=== PATIENT | female | born 1995 | race Caucasian/White ===

== ENCOUNTER → 2021-01-01 | Outpatient (CLI) | payer OTHER, BC, SELFPAY ==
--- NOTE | ~2021-01-01 | US_ITS ---
EXAMINATION: US OB <= 14 weeks fetus DATE: 01/01/2021 10:46 INDICATION: of uncertain dates TECHNIQUE: Real-time pelvic transabdominal and transvaginal ultrasound was performed. COMPARISON: None. FINDINGS: The uterus measures 11.1 x 8.7 cm. There is an intrauterine gestational sac. A yolk sac is identified. heart motion is identified measuring 169 beats per minute (bpm) by M-mode Doppler. The crown rump length measures 2.1 cm , which correlates with an estimated gestational age of 8 weeks and 5 day(s) (+/-) 5 day(s). The ovaries are not visualized however no adnexal abnormality is seen. There is no free fluid in the pelvis. IMPRESSION: 1. Live intrauterine with an estimated gestational age of 8 weeks and 5 day(s) (+/-) 5 day( s) and an estimated delivery date of 08/08/2021. Reviewed, dictated and finalized at location A. IMPRESSION: 1. Live intrauterine with an estimated gestational age of 8 weeks and 5 day(s) (+/-) 5 day(s) and an estimated delivery date of 08/08/2021.
== END | disposition home or self-care (01) ==
PROVIDERS: Visit Provider Obstetrics & Gynecology
DX: Z34.91 Encounter for supervision of normal pregnancy, unspecified, first trimester (principal); Z3A.01 Less than 8 weeks gestation of pregnancy
CPT/HCPCS: 76801

== ENCOUNTER → 2023-09-19 15:32 | Outpatient (CLI) | payer OTHER, SELFPAY ==
--- NOTE | ~2023-09-19 | XR_ITS ---
EXAMINATION: XR lumbar spine 2-3V DATE: 09/19/2023 15:48 INDICATION: Low back pain TECHNIQUE: Anteroposterior and lateral views of the lumbar spine, and cone-down lateral view of the l umbosacral junction were obtained. COMPARISON: Lumbar spine MR dated 04/01/2018 and radiographs dated 03/23/2018 FINDINGS: There is new lumbar levoscoliosis measuring 17 degrees between L2 and L5 with compensatory mild thora columbar dextrocurvature measuring 12 degrees between T10 and L2. Sagittal alignment is normal. Mild disc height loss at L4-5 and L5-S1 and on the right at L2-L3 and L3-L4. Visualized portions of the kimber ng bases are clear with no pleural effusion. IMPRESSION: 1. 17 degrees lumbar levoscoliosis with mild spondylosis. Reviewed, dictated and finalized at location A. OLE COMPRESSOR
== END ==
PROVIDERS: PCP Physician Assistant; Visit Provider Physician Assistant
DX: M41.86 Other forms of scoliosis, lumbar region (principal); M43.06 Spondylolysis, lumbar region
CPT/HCPCS: 72100

== ENCOUNTER 2025-06-18 12:58 | Emergency (ER) | payer OTHER, SELFPAY ==
[2025-06-18] VITALS (15 sets, daily range): BP systolic 107–157; BP diastolic 64–93; PULSE 72–119; RESP 12–20; O2SAT 97–100
--- NOTE | ~2025-06-18 | XR_ITS ---
EXAMINATION: XR chest 2V DATE: 06/18/2025 13:29 INDICATION: Chest pain TECHNIQUE: PA and lateral views of the chest were obtained. COMPARISON: Chest radiograph dated 10/17/2008 FINDINGS: The lungs are now clear with no focal airspace opacities, pulmonary edema, pleural effusion or pneumothorax. The cardiomediastinal silhouette is normal. Mild thoracic dextrocurvature with moderate spondylosis. IMPRESSION: 1. No acute cardiopulmonary disease. Reviewed, dictated and finalized at location A. Y MACHINE OPERATOR FARMWORKER
--- OUTSIDE RECORDS SUMMARY | 2025-06-18 13:03 | XMS_ITS | Clinical Summary ---
Author Organization [facility] Address [address] [place] [address] Phone Care Team Providers Care Seed Cleaner Operator Name Role Phone Naga Adkins MD Primary Care Provider Allergies No known active allergies Medications HYDROcodone-liza taminophen (NORCO) 5-325 mg tablet Take 1-2 Tablets by mouth every 4 hours as needed for Pain, Moderate. Max Daily Amount: 12 Tablets 60 Tablet 10/02/2018 Active Immunizations Immunization Administration Dates Next Due Influenza Seasonal Unspecified Formulation IM Social History Tobacco Use Types Packs/Day Years Used Date Smoking Tobacco: Never Smokeless Tobacco: Never Alcohol Use Standard Drinks/Week Comments Yes 3 (1 standard drink = 0.6 oz pur e alcohol) Comments No Sex and Gender Information Value Date Recorded Sex Assigned at Not on file Legal Sex Female 1:54 PM UNDERWRITING DIRECTOR Gender Identity Not on file Sexual Orientation Not on file Last Filed Vital Signs Vital Sign Reading Time Taken Comments Blood Pressure 109/64 10/03/2018 7:57 AM UNDERWRITING DIRECTOR Pulse 62 10/03/2018 7:57 AM UNDERWRITING DIRECTOR Temperature 37.4 C (99.3 F) 10/03/2018 7:57 AM UNDERWRITING DIRECTOR Respiratory Rate 20 10/03/2018 7:57 AM UNDERWRITING DIRECTOR Oxygen Saturation 100% 10/03/2018 7:57 AM UNDERWRITING DIRECTOR Inhaled Oxygen Concentration - - Weight 87.5 kg (193 lb) 10/02/2018 7:44 AM UNDERWRITING DIRECTOR Height 185.4 cm (6' 1) 10/02/2018 7:44 AM UNDERWRITING DIRECTOR Body Mass Index 25.46 10/02/2018 7:44 AM UNDERWRITING DIRECTOR Plan of Treatment Health Maintenance Due Date Last Done Comments DTAP/TDAP/TD VACCINES (1 - Tdap) 2013 HEPATITIS B VACCINES (1 of 3 - 19+ 3-dose series) 06/10 HPV/Cotest (21-29) 2015 HPV VACCINES (1 - 3-dose SCDM series) 2021 CERVICAL CANCER SCREENING 2024 HPV/Cotest (30-65) 2024 PAP SMEAR 2024 INFLUENZA VACCINE (#1) 2025 06/08/2018 Medical Devices Implanted Type Area Pe Manager Device Identifier Shelf Expiration Date Model / Serial / Lot Sealant Duraseal 5ml - [id number] Implanted:Qty : 1 on 10/02/2018 by Arelis Silva MD at [facility] Biological Right: Spine Lumbar [employer] [id number] 12/06/2019 / / [id number] Hemostatic Surgiflo 8ml W/Thrombin 2994 - [id number] Implanted:Qty : 1 on 10/02/2018 by Arelis Silva MD at [facility] Hemostatic Right: Spine Lumbar [employer] 01/06/2020 [id number] / / [id number] [place] 1.6cm Disc Implanted:Qty : 1 on 10/02/2018 by Arelis Silva MD at [facility] Tissue Right: Spine Lumbar 05/15/2023 [id number] / [id number] / Description:Donor # [id number] REQ# [id number] Nexplanan-(L) Upper Arm Insurance [facility] BLUE ACCESS/TRUE BLUE PPO Advance Directives For more information, please contact: [phone] * Full Code (Latest Code Status on File) Date Activated Date Inactivated Comments 10/02/2018 12:00 PM 10/03/2018 2:32 PM * Full Code Date Activated Date Inactivated Comments 10/02/2018 7:52 AM 10/02/2018 12:00 PM Care Teams Seed Cleaner Operator Relationship Specialty Start Date End Date Naga Adkins MD [address] [place] [address] PCP - General Family Practice 09/29/18
--- OUTSIDE RECORDS SUMMARY | 2025-06-18 13:03 | XMS_ITS | Clinical Summary ---
Author Organization [address] Address [address] [place] [address] Care Team Providers Care Research Consultant Name Role Phone Unknown, Notinfile Primary Care Provider Unavail able Allergies No known active allergies Medications multivitamin tablet,chewable Take by mouth Active 12-rthx-pefquy 6-dha 30 mg iron-1mg -200 mg capsule Take by mouth daily Active acetaminophen 500 mg capsule Take 2 capsules (1,000 mg total) by mouth every 6 (six) hours as needed for pain 60 tablet 3 Active Additional Information Patient not taking.Reported on 08/30/2024 ibuprofen (ADVIL,MOTRIN) 600 mg tabletIndicatio ns:Cramps Take 1 tablet (600 mg total) by mouth every 6 (six) hours as needed for pain 60 tablet 3 Active Additional Information Patient not taking.Reported on 08/30/2024 polyethylene glycol (MIRALAX) 17 gram/dose bulk powderIndicatio ns:constipation Take 17 g by mouth daily 517 g Active Additional Information Patient not taking.Reported on 07/27/2024 Hospital, Clinic, or Other Facility Administered Medication Ordered Dose Route Frequency Start Date End Date Status etonogestreL (NEXPLANON) implant 68 mgIndications:Pregna ncy Contraception 68 mg subderm Continuous (implanted device) 08/31/2024 08/31/2027 Active Active Problems Problem Noted Date Diagnosed Date Nexplanon placed 08/30/24 12/10/2021 Overview (03/25/2021): Cardiac acvity present. FHR 143 bpm. movements visualized. Presentaon Breech. Placenta anterior, Previa-no, no placental masses. Umbilical cord Cord vessels: 3 vessel cord. Cord inser on: placental inser on: normal. Amnioc fluid Amount of AF: normal amount EFW 85% Resolved Problems Problem Noted Date Diagnosed Date Resolved Date Encounter for induction of labor 06/20/2024 07/27/2024 Overview (06/20/2024): Kofi Cantrell is a 28 y.o. female at 39w3d who is dated by 1st trimester ultrasound and is being admitted for an elective induction of labor. Admit to L&D: Labs: CBC and T&S pending. Induction of labor with miso . FWB: Continuous monitoring. Reactive NST. ID: 3rd trimester HIV (>28 wga) pending on admission. GBS positive on 05/31, will start PCN . RPR on admission: pending. History of genital HSV or HSV 1/2 seropositivity: No. Membrane Status: intact. Indications for UDS: none. Verbal consent obtained for UDS: Not indicated. MOF: Plans to breastfeed. Urine drug screen not indicated. Patient informed of results: N/A. MOC: Considering nexplanon but does not desire on unit . Pain management: Desires epidural. Post DVT prophylaxis: The patient has the following MAJOR risk factors none and the following MINOR risk factors BMI 30-39. SCDs will be ordered for VTE prophylaxis . c/b: #Elevated 1 hr GTT: S/p normal 3 hr GTT, no further workup needed #Choroid plexus cyst: Seen on anatomy scan, s/p LR NIPT care following vaginal delivery 06/20/2024 08/30/2024 Overview (06/22/2024): # ID: Afebrile. No signs/symptoms of infection. # Heme: #PPH QBL 1800 mL, 2/2 uterine atony s/p pit, methergine, TXA, rectal miso following delivery. Admit hgb 11.9 > PPD0 11.6 > PPD1 AM 10.5 > 10.7. No signs or symptoms of acute blood loss anemia , hemodynamically stable. # CV/Pulm: Vital signs stable, within normal limits. Not a candidate for remote blood pressure monitoring. # GI/: Tolerating PO. Voiding spontaneously. # Pain: Controlled with above regimen. # MOC: Considering nexplanon at PP visit, does not desire bridge . # MOF: . Urine drug screen not indicated. Patient informed of results: N/A. # Post DVT prophylaxis: The patient has the following MAJOR risk factors none and the following MINOR risk factors BMI 30-39. SCDs ordered for VTE prophylaxis. # Disposition: Follow up to be scheduled with primary OB. Desires discharge home today. Service Coverage These phones are service phones and carried 28/02 in house: R1 (first call) [phone] R1 alt (second call) [phone] R4 (Chief) [phone] GBS (group B Streptococcus c arrier), +RV culture, currently 06/06/2024 07/27/2024 Elevated 1hr GTT, 3hr WNL 4/4 03/22/2024 07/27/2024 Overview (03/30/2024): Midtrimester Labs Lab Results Component Value Date [id number] 141 (H) 03/20/2024 3hr WNL 4/ Choroid plexus cyst on anatomy ultrasound 01/28/2024 07/27/2024 Overview (03/01/2024): NIPT low risk pt BSR 12/20/2023 07/27/2024 Overview (03/01/2024): IOB Labs: Lab Results Component Value Date ABORH A Positive 12/20/2023 IDCOOMB Negative 12/20/2023 [id number] Nonreactive 12/20/2023 LABRPR Nonreactive 12/20/2023 RUBELIGG Reactive 12/20/2023 HEPBSAG Nonreactive 12/20/2023 [id number] 107 04/28/2021 Optional: [] Aneuploidy screening: Low risk [] Carrier testinnd Tri Labs: [] Anatomy ultrasound: [] CBC/1hr gtt/HIV/RPR at 24-28wks: Lab Results Component Value Date [id number] 107 04/28/2021 [id number] Nonreactive 12/20/2023 LABRPR Nonreactive 12/20/2023 [] Flu Shot (Apr-October) [] Tdap (27-36wks) 3rd Tri Labs: [] GBS No results found for: GBS Vaginal delivery 08/06/2021 09/16/2021 Overview (08/08/2021): # ID: Afebrile. No signs/symptoms of infection. #COVID-19: Negative # Heme: EBL 450 mL. No symptoms acute blood loss anemia. # CV/Pulm: Vital signs stable, within normal limits. # GI/: Tolerating PO. Voiding spontaneously. # Pain: Controlled with above regimen. # Post DVT prophylaxis: The patient has the following MAJOR risk factors none and the following MINOR risk factors BMI 30-39. SCDs ordered for VTE prophylaxis. # MOC: declines # MOF: # COVID Vaccination Status: Previously received # Disposition: Follow up task not sent. Desires discharge home today. Encounter for induction of labor 08/05/2021 09/16/2021 Overview (08/05/2021): 1. Induction of labor: Admit to L&D. Consents signed and placed in chart. Send CBC/T&S. Induction of labor with misoprostol. 2. FWB: Continuous monitoring. Reactive NST 3. ID: HIV negative. GBS negative. Membrane Status: intact. 4. Indications for UDS: none. Verbal consent obtained for UDS: Not indicated 5. MOF: Plans to breastfeed. 6. MOC: Plans to use POPs for contraception. 7. Pain management: Desires epidural when painfully maria antonia. 8. Post DVT prophylaxis: The patient has the following MAJOR risk factors none and the following MINOR risk factors BMI 30-39. SCDs will be ordered for VTE prophylaxis . 9. COVID Vaccine Status: Not assessed 10. COVID Test Status: Test sent on admission pt of BR 01/29/2021 09/16/2021 Overview (07/24/2021): IOB Labs: Lab Results Component Value Date ABORH A Positive 01/28/2021 IDCOOMB Negative 01/28/2021 [id number] Nonreactive 04/28/2021 LABRPR Nonreactive 04/28/2021 RUBELIGG Reactive 01/28/2021 HEPBSAG Nonreactive 01/28/2021 [id number] 107 04/28/2021 Optional: [] Aneuploidy screening: [] Carrier testinnd Tri Labs: [x] Anatomy ultrasound: [x] CBC/1hr gtt/HIV/RPR at 24-28wks: Lab Results Component Value Date [id number] 107 04/28/2021 [id number] Nonreactive 04/28/2021 LABRPR Nonreactive 04/28/2021 [] Flu Shot (Apr-October) [] Tdap (27-36wks) 3rd Tri Labs: [] GBS No results found for: GBS Overview (03/25/2021): Cardiac acvity present. FHR 143 bpm. movements visualized. Presentaon Breech. Placenta anterior, Previa-no, no placental masses. Umbilical cord Cord vessels: 3 vessel cord. Cord inser on: placental inser on: normal. Amnioc fluid Amount of AF: normal amount EFW 85% Immunizations Immunization Administration Dates Next Due Influenza, Trivalent, IM (MDV) 06/08/2018 Influenza, Trivalent, Preser vative Free, Intramuscular 06/01/2024 Influenza, Unspecified 06/22/2021 MMR 06/22/2024(Deferred: No longer n eeded) RSV, Bivalent, Protein Subun it Rsvpref, Diluent (Abrysvo) 05/17/2024 Tdap 04/12/2024,05/26/2021 Varicella 06/22/2024(Deferred: No longer n eeded) Surgical History Surgery Date Site/Laterality Comments MICRODISCECTOMY 08/08/2018 - 08/07/2019 Family History Medical History Relation Name Comments Hyperlipidemia Father Hypertension Father Diabetes Maternal Grandfather Stroke Paternal Grandfather Relation Name Status Comments Father Maternal Grandfather Paternal Grandfather Social History Tobacco Use Types Packs/Day Years Used Date Smoking Tobacco: Never Smokeless Tobacco: Never Tobacco Cessation:Counseling Given: Not Answered [facility] Utilities Answer Date Recorded In the past 12 months has th e electric, gas, oil, or water company threatened to shut off services in your home? No 06/21/2024 Social Connection and Isolation Panel Answer Date Recorded In a typical week, how many times do you talk on the phone with family, friends, or neighbors? More than three times a week 06/21/2024 How often do you get togethe r with friends or relatives? Three times a week 06/21/2024 How often do you attend chur ch or gnosticism services? Never 06/21/2024 Do you belong to any clubs o r organizations such as hindu groups, unions, fraternal or athletic groups, or school groups? No 06/21/2024 How often do you attend meet ings of the clubs or organizations you belong to? Never 06/21/2024 Are you , , di vorced, , never , or living with a partner? 06/21/2024 AUDIT-C Answer Date Recorded Q1: How often do you have a drink containing alc ohol? Never 06/06/2024 Average Number of Drinks Not on file 024 Frequency of Binge Drinking Not on file 05/10 Overall Financial Resource Strain (CARDIA) Answe r Date Recorded How hard is it for you to pa y for the very basics like food, housing, medical care, and heating? Not hard at all 06/21/2024 Hunger Vital Sign Answer Date Recorded Within the past 12 months, y ou worried that your food would run out before you got the money to buy more. Never true 06/21/20 24 Within the past 12 months, t he food you bought just didn't last and you didn't have money to get more. Never true 06/21/2024 PRAPARE - Transportation Answer Date Re corded In the past 12 months, has l ack of transportation kept you from medical appointments or from getting medications? No 06/08 In the past 12 months, has l ack of transportation kept you from meetings, work, or from getting things needed for daily living? No 06/21/2024 Lindsay Depression Scale Answer Date Recorded Lindsay Depression Scale Total 5 07/27/2024 The thought of harming myself has occurred to me . Never 07/27/2024 Housing Stability Vital Sign Answer Leno e Recorded In the last 12 months, was t here a time when you were not able to pay the mortgage or rent on time? No 06/21/2024 In the past 12 months, how m any times have you moved where you were living? 0 06/21/2024 At any time in the past 12 m ont, were you homeless or living in a fpc (including now)? No 06/21/2024 Personal Safety Answer Date Recorded Have you ever been in or are you currently in a harmful physical or emotional relationship or is someone making you feel afraid or unsafe? Denies 06/20/2024 Comments No Sex and Gender Information Value Date Recorded Sex Assigned at Not on file Legal Sex Female 9:58 PM CERTIFIED ALCOHOL DRUG COUNSELOR Gender Identity Female 03/24/2021 9:00 AM CDT Sexual Orientation Not on file Occupation Industry Job Start Date Job End Date RN Not on file Not on file Not on file Obstetrics History Para Term AB IAB SAB Ectopic Multiple Livin g Live Births 2 2 2 0 2 2 Date Outcome GA Total Labor Labor/2nd/3rd Weight Sex Type Anes PTL Tiffanie A1 A5 Name Clin 2020 Term 39w 5d 5h 07m 3h 39m/1h 13m/0h 15m 4.06 kg (8 lb 15.2 oz) M Vag-Sp ont Epidur al N Livin g 6 7 KINDRA CANTRELL Bridg et Schev e, MD Complications:None Delivery Location:[facility]) 2023 Term 39w 3d 12h 19m 12h 07m/0h 09m/0h 03m 4.04 kg (8 lb 14.5 oz) M Vagina l Epidur al N Livin g 8 9 Felisha Pop am, MD Complications:None Delivery Location:[facility] ([facility]) Comments 07/28 Michael Anders 07/01 Enmanuel Rodrigues Last Filed Vital Signs Vital Sign Reading Time Taken Comments Blood Pressure 120/80 08/30/2024 1:26 PM CERTIFIED ALCOHOL DRUG COUNSELOR Pulse 66 06/22/2024 12:25 AM CERTIFIED ALCOHOL DRUG COUNSELOR Temperature 36.5 C (97.7 F) 06/22/2024 12:25 AM CERTIFIED ALCOHOL DRUG COUNSELOR Respiratory Rate 16 06/22/2024 12:25 AM CERTIFIED ALCOHOL DRUG COUNSELOR Oxygen Saturation 99% 06/22/2024 12:25 AM CERTIFIED ALCOHOL DRUG COUNSELOR Inhaled Oxygen Concentration - - Weight 100.2 kg (221 lb) 08/30/2024 1:26 PM CERTIFIED ALCOHOL DRUG COUNSELOR Height 188 cm (6' 2) 08/30/2024 1:26 PM CERTIFIED ALCOHOL DRUG COUNSELOR Body Mass Index 28.37 08/30/2024 1:26 PM CERTIFIED ALCOHOL DRUG COUNSELOR Plan of Treatment Health Maintenance Due Date Last Done Comments Varicella Vaccines (1 of 2 - 13+ 2-dose series) 2007 Hepatitis B Screening 2012 HPV Vaccines (1 - 3-dose SCD M series) 2021 Cervical Cancer Screening 06/27/20242022, 01/28/2021 Regular Well Visit/Exam 18-64 06/27/2024 06/27/2023 Covid-19 Vaccine (3 - 2024-2 6 season) 2025 06/03/2022, 05/13/2022 Influenza Vaccine (#1) 2025 , 06/22/2021, 06/08/2018 Depression Screening 07/27/2025 07/27/2024 DTaP/Tdap/Td Vaccine (3 - Td or Tdap) 04/12/2034 04/12/2024, 05/26/2021 Hepatitis C Screening Completed 12/20/2023 Pneumococcal vaccine <65 Aged Out No longer eligible based on patient's age to complete this topic Procedures Procedure Name Priority Date/Time Associated Diagnosis Comments HEPATITIS C ANTIBODY Routine 12/20/2023 11:24 AM CDT care, antepartum PAP WITH REFLEX TO HIGH RISK HPV Routine 06/27/2023 11:51 AM CERTIFIED ALCOHOL DRUG COUNSELOR Well woman exam Cervical cancer screening from Last 3 Months or Most Recently Relevant to Health Maintenance Results * Hepatitis C antibody Blood (12/20/2023 11:24 AM CDT) Hep C Ab Nonreactive Nonreactive Comment:Antibodies to HCV no t detected. Does NOT exclude the possibility of recent exposure to HCV. Current interpretive data was last revised on 22 Blood 12/20/2023 11:2 4 AM CDT 12/20/2023 4:27 PM CDT us Meseret Fletcher MD LAB MICROBIOLOGY - NERAL ORDERABLES Final Result [facility] Department of Laboratories [place], [place] [id number] * Pap with reflex to High Risk HPV and Genotyping (Cytology Component) (06/27/2023 11:51 AM CERTIFIED ALCOHOL DRUG COUNSELOR) Thin prep (Pap test) 06/27/2023 11:51 AM CERTIFIED ALCOHOL DRUG COUNSELOR 06/27/2023 11:51 AM CERTIFIED ALCOHOL DRUG COUNSELOR Narrative PATHOLOGY - 06/29/2023 12:43 PM CERTIFIED ALCOHOL DRUG COUNSELOR [facility] Department of Pathology [address] [place] [id number] Final Report Note to Patients: This report may contain a detailed description of human tissue sent by a health care provider to the laboratory for pathologic evaluation. The content of this report is essential for diagnosis and may provide important critical findings. This information may be unfamiliar to patients to review without a medical professional present. It is advised that the patient review this report in the presence of a health care provider who can answer questions and explain the details. Patient Name: KOFI CANTRELL Address: [address] [place] [address] Gender: F : 1995 (Age: 27) Service: Location: [facility] : [id number] [facility] #: [id number] Patient Type: SPECIMEN Taken: 06/27/2023 Received: 06/27/2023 Accessioned:: 06/28/2023 Reported: 06/29/2023 Physician(s): LIZZETH Pacheco WHNP Diagnosis: SOURCE OF SPECIMEN Imaged Thinprep Pap Test w/ Reflex HPV - Staff Training And Development Manager Cytologic Material: STATEMENT OF ADEQUACY - Satisfactory for evaluation; endocervical/transformation zone component present GENERAL CATEGORIZATION: - Negative for intraepithelial lesion or malignancy CARLOS Jarvis(ASCP) Report Electronically Reviewed and Signed Out By CARLOS Jarvis(ASCP) 06/29/2023 12:43:10Specimen(s) Received: A: Imaged Thinprep Pap Test w/ Reflex HPV - Staff Training And Development Manager Cytologic Material Clinical History: Last Menstrual Period: 06/13/2023 Menstrual History: Previous Negative Pap: 2020 The Pap test is a screening test used to aid in the detection of cervical cancer and its precursors. It should not be the sole means by which malignant and premalignant lesions are diagnosed. Both false negative and false positive results may occur. It also has poor sensitivity for the detection of endometrial lesions and should not be used to evaluate suspected endometrial abnormalities. For these reasons it is most important to obtain Pap tests at regular intervals. The performance characteristics of some immunohistochemical stains, fluorescence in-situ hybridization tests and immunophenotyping by flow cytometry cited in this report (if any) were determined by the Surgical Pathology Department at [facility] as part of an ongoing chief quality officer program and in compliance with federally mandated regulations drawn from the Clinical Laboratory Improvement Act of 1988 (CLIA '88). Some of these tests rely on the use of analyte specific reagents and are subject to specific labeling requirements by the US Food and Drug Administration. Such diagnostic tests may only be performed in a facility that is certified by the Department of Health and Human Services as a high complexity laboratory under CLIA '88. The FDA has determined that such clearance or approval is not necessary. This test is used for clinical purposes. It should not be regarded as investigational or for research. Nevertheless, federal rules concerning the medical use of analyte specific reagents require that the following disclaimer be attached to the report: This test was developed and its performance characteristics determined by the Surgical Pathology Department [facility]. It has not been cleared or approved by the U. S. Food and Drug Administration. Danette Taylor EMAIL ADMINISTRATOR LAB CYTOLOGY ORDERABLE S Final Result PATHOLOGY [address] [place] [address] from Last 3 Months or Most Recently Relevant to Health Maintenance Insurance [employer] Address: [facility] [id number] [place] [address] [employer] Address: [facility] [id number] [place] [address] [employer] Address: [facility] [id number] [place] [address] Advance Directives For more information, please contact: [phone] * Full Code (Latest Code Status on File) Date Activated Date Inactivated Comments 06/20/2024 10:54 PM 06/22/2024 4:14 PM * Full Code Date Activated Date Inactivated Comments 06/20/2024 6:28 AM 06/20/2024 10:54 PM Full CPR in case of cardiopulmonary arrest * Full Code Date Activated Date Inactivated Comments 08/06/2021 1:26 AM 08/08/2021 7:27 PM * Full Code Date Activated Date Inactivated Comments 08/05/2021 6:47 AM 08/06/2021 1:26 AM Full CPR i n case of cardiopulmonary arrest Care Teams Research Consultant Relationship Specialty Start Date End Date Unknown, Notinfile PCP - General 02/20/20
--- NOTE | 2025-06-18 13:04 | ECG_ITS ---
Test Date: 2025-06-18 13:16:54 Measurements Intervals [place] Rate: 88 P: 72 NM: 159 QRS: 94 QRSD: 114 T: 41 QT: 342 QTc: 416 Interpretive Statements SINUS RHYTHM POSSIBLE RIGHT ATRIAL ENLARGEMENT [0.25mV P-WAVE] BORDERLINE RIGHT AXIS DEVIATION [QRS AXIS > 90] No previous ECG available for comparison Electronically Signed On 06-18-2025 17:59:21 VERIFICATION LEAD by Nick Campos M.D.
[2025-06-18] MEDS: ASPIRIN 81 MG CHEWABLE TABLET 324 MG PO (13:23)
[2025-06-18 13:27] LABS: Hematocrit 39.5 % (37.0-47.0); Hemoglobin 13.2 g/dL (12.0-15.0); Immature Granulocyte Percent A 0.2 % (0-0.5); Lymphocytes Absolute Auto 2.32 K/mm3 (0.9-3.2); Mean Corpuscular HGB Conc 33.4 g/dl (32-36); Mean Corpuscular Hemoglobin 30.1 pg (26-34); Mean Corpuscular Volume 90.2 fl (80-100); Nucleated Red Blood Cells Absolute Auto 0.000 K/mm3 (0.0-0.012); Nucleated Red Blood Cells Perc 0.0 % (0.0-0.2); Platelet Count Result 245 k/mm3 (150-375); Red Blood Count 4.38 M/mm3 (4.2-5.4); White Blood Count 5.9 K/mm3 (4.5-10.0)
[2025-06-18 13:41] LABS: INR 1.0; Prothrombin Time 13.6 Seconds (11.1-14.7)
[2025-06-18 13:42] LABS: Partial Thromboplastin Time 29.8 Seconds (22.3-36.8)
[2025-06-18 13:43] LABS: Alanine Aminotransferase 14 U/L (6-35); Albumin Level 4.7 g/dL (3.5-5.1); Alkaline Phosphatase 54 U/L (38-126); Anion Gap 10 mmol/L (4-12); Aspartate Amino Transferase 22 U/L (14-36); Bilirubin,Total 1.6 mg/dL (0.2-1.3); Blood Urea Nitrogen 12 mg/dL (7-17); Calcium 9.2 mg/dL (8.4-10.2); Carbon Dioxide 26 mmol/L (22-30); Chloride 102 mmol/L (98-107); Estimated CRCL calculation 107 ml/min; Estimated Glomerular Filt Rate > 60; Glucose 101 mg/dL (65-110); Lipase 104 U/L (23-300); Potassium 3.5 mmol/L (3.4-5.0); Sodium 138 mmol/L (137-145); Total Protein 8.4 g/dL (6.3-8.2)
[2025-06-18 13:53] LABS: Troponin I < 0.012 ng/mL (0.000-0.034)
--- OUTSIDE RECORDS SUMMARY | 2025-06-18 14:08 | XMS_ITS | Clinical Summary ---
Author Organization [address] Address [address] [place] [address] Care Team Providers Care Fiction And Nonfiction Writer Prose Name Role Phone Unknown, Notinfile Primary Care Provider Unavail able Allergies No known active allergies Medications multivitamin tablet,chewable Take by mouth Active 97-ivqr-pffvtl 6-dha 30 mg iron-1mg -200 mg capsule [...] carried 28/02 in house: R1 (first call) [phone] R1 alt (second call) [phone] R4 (Chief) [phone] GBS (group B Streptococcus c arrier), +RV culture, currently 06/06/2024 07/27/2024 Elevated 1hr GTT, 3hr WNL 4/4 03/22/2024 07/27/2024 Overview (03/30/2024): Midtrimester Labs Lab Results Component Value Date [id number] 141 (H) 03/20/2024 3hr WNL 4/ Choroid plexus cyst on anatomy ultrasound 01/28/2024 07/27/2024 Overview (03/01/2024): NIPT low risk pt BSR 12/20/2023 07/27/2024 Overview (03/01/2024): IOB Labs: Lab Results Component Value Date ABORH A Positive 12/20/2023 IDCOOMB Negative 12/20/2023 [id number] Nonreactive 12/20/2023 LABRPR Nonreactive 12/20/2023 RUBELIGG Reactive 12/20/2023 HEPBSAG Nonreactive 12/20/2023 [id number] 107 04/28/2021 Optional: [] Aneuploidy screening: Low risk [] Carrier testinnd Tri Labs: [] Anatomy ultrasound: [] CBC/1hr gtt/HIV/RPR at 24-28wks: Lab Results Component Value Date [id number] 107 04/28/2021 [id number] Nonreactive 12/20/2023 LABRPR Nonreactive 12/20/2023 [] Flu [...] ABORH A Positive 01/28/2021 IDCOOMB Negative 01/28/2021 [id number] Nonreactive 04/28/2021 LABRPR Nonreactive 04/28/2021 RUBELIGG Reactive 01/28/2021 HEPBSAG Nonreactive 01/28/2021 [id number] 107 04/28/2021 Optional: [] Aneuploidy screening: [] Carrier testinnd Tri Labs: [x] Anatomy ultrasound: [x] CBC/1hr gtt/HIV/RPR at 24-28wks: Lab Results Component Value Date [id number] 107 04/28/2021 [id number] Nonreactive 04/28/2021 LABRPR Nonreactive 04/28/2021 [] Flu [...] Tobacco: Never Tobacco Cessation:Counseling Given: Not Answered [facility] Utilities Answer Date Recorded In the past [...] often do you attend chur ch or pentecostalism services? Never 06/21/2024 Do you belong to any clubs o r organizations such as faith groups, unions, fraternal or athletic groups, or [...] things needed for daily living? No 06/21/2024 Mcnabb Depression Scale Answer Date Recorded Mcnabb Depression Scale Total 5 07/27/2024 The thought [...] were you homeless or living in a jail (including now)? No 06/21/2024 Personal Safety Answer Date Recorded Have you ever been in or are you currently in a harmful physical or emotional relationship or is someone making you feel afraid or unsafe? Denies 06/20/2024 Comments No Sex and Gender Information Value Date Recorded Sex Assigned at Not on file Legal Sex Female 9:58 PM FACTORY MACHINE COMPUTER OPERATOR Gender Identity Female 03/24/2021 9:00 AM CDT [...] Bridg et Schev e, MD Complications:None Delivery Location:[facility] Main C ampus ([facility] 58LD) 2023 Term 39w 3d 12h 19m 12h 07m/0h 09m/0h 03m 4.04 kg (8 lb 14.5 oz) M Vagina l Epidur al N Livin g 8 9 Felisha Pop am, MD Complications:None Delivery Location:[facility] Main C ampus ([facility] 58LD) Comments 07/28 Michael Anders 07/01 Enmanuel Rodrigues Last Filed Vital Signs Vital Sign Reading Time Taken Comments Blood Pressure 120/80 08/30/2024 1:26 PM FACTORY MACHINE COMPUTER OPERATOR Pulse 66 06/22/2024 12:25 AM FACTORY MACHINE COMPUTER OPERATOR Temperature 36.5 C (97.7 F) 06/22/2024 12:25 AM FACTORY MACHINE COMPUTER OPERATOR Respiratory Rate 16 06/22/2024 12:25 AM FACTORY MACHINE COMPUTER OPERATOR Oxygen Saturation 99% 06/22/2024 12:25 AM FACTORY MACHINE COMPUTER OPERATOR Inhaled Oxygen Concentration - - Weight 100.2 kg (221 lb) 08/30/2024 1:26 PM FACTORY MACHINE COMPUTER OPERATOR Height 188 cm (6' 2) 08/30/2024 1:26 PM FACTORY MACHINE COMPUTER OPERATOR Body Mass Index 28.37 08/30/2024 1:26 PM FACTORY MACHINE COMPUTER OPERATOR Plan of Treatment Health Maintenance Due Date [...] HIGH RISK HPV Routine 06/27/2023 11:51 AM FACTORY MACHINE COMPUTER OPERATOR Well woman exam Cervical cancer screening from [...] MICROBIOLOGY - NERAL ORDERABLES Final Result [facility] Department of Laboratories [place], [place] [id number] * Pap with reflex to High Risk HPV and Genotyping (Cytology Component) (06/27/2023 11:51 AM FACTORY MACHINE COMPUTER OPERATOR) Thin prep (Pap test) 06/27/2023 11:51 AM FACTORY MACHINE COMPUTER OPERATOR 06/27/2023 11:51 AM FACTORY MACHINE COMPUTER OPERATOR Narrative PATHOLOGY - 06/29/2023 12:43 PM FACTORY MACHINE COMPUTER OPERATOR [facility] Department of Pathology [address] [place] [id number] Final Report Note to Patients: This [...] the details. Patient Name: KOFI CANTRELL Address: [address] [place] [address] Gender: F : 1995 (Age: 27) Service: Location: [facility] : [id number] [facility] #: [id number] Patient Type: SPECIMEN Taken: 06/27/2023 Received: 06/27/2023 Accessioned:: 06/28/2023 Reported: 06/29/2023 Physician(s): LIZZETH Pacheco WHNP Diagnosis: SOURCE OF SPECIMEN Imaged Thinprep Pap Test w/ Reflex HPV - [employer] Driver Cytologic Material: STATEMENT OF ADEQUACY - Satisfactory for evaluation; endocervical/transformation zone component present GENERAL CATEGORIZATION: - Negative for intraepithelial lesion or malignancy CARLOS Jarvis(ASCP) Report Electronically Reviewed and Signed Out By CARLOS Jarvis(ASCP) 06/29/2023 12:43:10Specimen(s) Received: A: Imaged Thinprep Pap Test w/ Reflex HPV - [employer] Driver Cytologic Material Clinical History: Last Menstrual Period: [...] determined by the Surgical Pathology Department at [facility] as part of an ongoing manufacturing quality technician program and in compliance with federally mandated [...] characteristics determined by the Surgical Pathology Department [facility]. It has not been cleared or approved by the U. S. Food and Drug Administration. Danette Taylor SKIP OPERATOR LAB CYTOLOGY ORDERABLE S Final Result PATHOLOGY [address] [place] [address] from Last 3 Months or Most Recently Relevant to Health Maintenance Insurance [employer] Address: [facility] [address] [place] [address] [employer] Address: [facility] [address] [place] [address] [employer] Address: [facility] [address] [place] [address] Advance Directives For more information, please contact: [phone] * Full Code (Latest Code Status on [...] n case of cardiopulmonary arrest Care Teams Fiction And Nonfiction Writer Prose Relationship Specialty Start Date End Date Unknown, Notinfile PCP - General 02/20/20
--- OUTSIDE RECORDS SUMMARY | 2025-06-18 14:09 | XMS_ITS | Clinical Summary ---
Author Organization [facility] Address [address] [place] [address] Phone Care Team Providers Care Fiberglass Roller Name Role Phone Naga Adkins MD Primary Care Provider [phone] Allergies No known active allergies Medications HYDROcodone-liza [...] on file Legal Sex Female 1:54 PM TRIAL MGR Gender Identity Not on file Sexual Orientation Not on file Last Filed Vital Signs Vital Sign Reading Time Taken Comments Blood Pressure 109/64 10/03/2018 7:57 AM TRIAL MGR Pulse 62 10/03/2018 7:57 AM TRIAL MGR Temperature 37.4 C (99.3 F) 10/03/2018 7:57 AM TRIAL MGR Respiratory Rate 20 10/03/2018 7:57 AM TRIAL MGR Oxygen Saturation 100% 10/03/2018 7:57 AM TRIAL MGR Inhaled Oxygen Concentration - - Weight 87.5 kg (193 lb) 10/02/2018 7:44 AM TRIAL MGR Height 185.4 cm (6' 1) 10/02/2018 7:44 AM TRIAL MGR Body Mass Index 25.46 10/02/2018 7:44 AM TRIAL MGR Plan of Treatment Health Maintenance Due Date Last Done Comments DTAP/TDAP/TD VACCINES (1 - Tdap) 2013 HEPATITIS B VACCINES (1 of 3 - 19+ 3-dose series) 06/10 HPV/Cotest (21-29) 2015 HPV VACCINES (1 - 3-dose SCDM series) 2021 CERVICAL CANCER SCREENING 2024 HPV/Cotest (30-65) 2024 PAP SMEAR 2024 INFLUENZA VACCINE (#1) 2025 06/08/2018 Medical Devices Implanted Type Area Maintenance And Engineering Manager Device Identifier Shelf Expiration Date Model / Serial / Lot Sealant Duraseal 5ml - [id number] Implanted:Qty : 1 on 10/02/2018 by Arelis Silva MD at [facility] Biological Right: Spine Lumbar [employer] [id number] 12/06/2019 / / [id number] Hemostatic Surgiflo 8ml W/Thrombin 2994 - [id number] Implanted:Qty : 1 on 10/02/2018 by Arelis Silva MD at [facility] Hemostatic Right: Spine Lumbar [employer] 01/06/2020 2994 / / [id number] Nushield 1.6cm Disc Implanted:Qty : 1 on 10/02/2018 by Arelis Silva MD at [facility] Tissue Right: Spine Lumbar 05/15/2023 [id number] / [id number] / Description:Donor # [id number] REQ# [id number] Nexplanan-(L) Upper Arm Insurance [facility] BLUE ACCESS/TRUE BLUE PPO Advance Directives For more information, please contact: [phone] * Full Code (Latest Code Status on File) Date Activated Date Inactivated Comments 10/02/2018 12:00 PM 10/03/2018 2:32 PM * Full Code Date Activated Date Inactivated Comments 10/02/2018 7:52 AM 10/02/2018 12:00 PM Care Teams Fiberglass Roller Relationship Specialty Start Date End Date Naga Adkins MD [address] [place] [address] PCP - General Family Practice 09/29/18
--- NOTE | 2025-06-18 15:56 | ECG_ITS ---
Test Date: 2025-06-18 16:03:53 Measurements Intervals [place] Rate: 71 P: 68 CO: 155 QRS: 88 QRSD: 111 T: 40 QT: 384 QTc: 419 Interpretive Statements SINUS RHYTHM Electronically Signed On 06-18-2025 18:07:27 MEDICAL DOCTOR MD by Nick Campos M.D.
--- NOTE | 2025-06-18 16:25 | ED_ITS ---
HPI - Chest Pain General Chief Complaint: Chest Pain Stated Complaint: CP x 1.5 weeks Time Seen by Provider: 06/18/25 13:55 History of Present Illness HPI narrative: 29-year-old female presenting with unpredictable intermittent chest pain for the last 2 weeks. Patient states the pain radiates down her left arm and is accompanied by numbness. She also endorses shakiness when the pain comes on. She denies shortness of breath but reports that she feels like she cannot take a deep breath. Patient endorses a significant family history of stroke and [place]. patient states that she has a Nexplanon implant but does not have any other medications. Denies diaphoresis, fevers/chills, dizziness, loss of consciousness, or recent illness. Related Data Home Medications ?Medication ?Instructions ?Recorded ?Confirmed ?Last Taken ?Type No Home Medications 04/09/25 05/29/25 U nknown History Allergies Allergy/AdvReac Type Severity Reaction Status Date / Time No Known Allergies Allergy Mild Verified 05/29/25 15:12 Review of Systems 2 Review of Systems: All systems reviewed & are unremarkable except as noted in HPI and below PMFSH Past Medical History Medical History (Updated 06/18/25 @ 16:35 by GONZALEZ James) Elevated bilirubin Encounter for wellness examination in adult BMI 27.0-27.9,adult Family History Family History Other Family history of premature coronary heart disease Hypertension Social History Social History Alcohol intake: never Substance use: never Substance use type: does not use Do You Feel Safe in your Home?: Yes Lack of Transportation: No Lack of Food: Never True Current Housing: I Have Housing Concerned About Future Housing: No Difficulty Paying Gas/Electric Bills: No Difficulty Paying for Meds: No Currently Unemployed: No Education: Bachelor's Degree Difficulty w/ Childcare or Family Care: No Living arrangements: with family Exam 2 Narrative: GENERAL: Well-appearing, well-nourished, and in no acute distress. HEAD: Normocephalic, atraumatic. EYES: PERRLA and EOMI. ENT: Nares clear, no rhinorrhea or epistaxis. Mucous membranes moist. Oropharynx without tonsillar hypertrophy exudate or other lesions. Bilateral TMs pearly roy non-bulging NECK: Supple. No adenopathy or masses. No carotid bruits or JVD CHEST: Clear to auscultation. No respiratory distress. No wheezes rales or rhonchi HEART: Regular rate and rhythm. No murmur heard. Normal peripheral pulses. ABDOMEN: Soft, nontender, nondistended, normal active bowel sounds. EXTREMITIES: Normal range of motion. No edema. SKIN: Warm, dry, no rash. NEURO: No focal deficits. Alert and oriented x3. PSYCH: Normal mood and affect Course Vital Signs Vital signs: Vital Signs Pulse Rate 119 H 06/18/25 13:04 Respiratory Rate 20 06/18/25 13:04 Blood Pressure 157/93 H 06/18/25 13:04 Pulse Oximetry 100 06/18/25 13:04 Oxygen Delivery Room Air 06/18/25 13:04 Pulse Rate 86 06/18/25 16:00 Respiratory Rate 17 06/18/25 16:00 Blood Pressure 112/64 06/18/25 15:46 Pulse Oximetry 100 06/18/25 16:00 Oxygen Delivery Room Air 06/18/25 13:07 MDM - Chest Pain MDM Narrative Medical decision making narrative: 29-year-old female presenting with unpredictable intermittent chest pain for the last 2 weeks. Patient states the pain radiates down her left arm and is accompanied by numbness. She also endorses shakiness when the pain comes on. She denies shortness of breath but reports that she feels like she cannot take a deep breath. Patient endorses a significant family history of stroke and MN. patient states that she has a Nexplanon implant but does not have any other medications. Denies diaphoresis, fevers/chills, dizziness, loss of consciousness, or recent illness. Patient's EKGs and labs are without significant high risk changes. EKG w/o acute ischemic changes. Troponin negative. Cardiac risk factors reviewed. HEART score = 0 . Patient is felt likely low risk for ACS and reasonable for further risk stratification testing as an outpatient. Pain was not sudden or maximal in onset without tearing or ripping quality. No other signs or symptoms to suggest aortic dissection. A low-risk Wells criteria is noted, dimer negative, PE is felt to be unlikely. No pneumonia seen on evaluation today. Patient is felt to be a reasonable candidate for continued evaluation as an outpatient. Lab Data 06/18/25 13:19 06/18/25 13:19 Labs: Lab Results 06/18/25 06/18/25 Range/Units 13:19 16:04 WBC 5.9 (4.5-10.0) K/mm3 RBC 4.38 (4.2-5.4) M/mm3 Hgb 13.2 (12.0-15.0) g/dL Hct 39.5 (37.0-47.0) % MCV 90.2 (80-100) fl MCH 30.1 (26-34) pg MCHC 33.4 (32-36) g/dl RDW 12.8 (11.5-14.5) % Plt Count 245 (150-375) k/mm3 MPV 9.2 (7.4-10.4) fl Immature Gran % (Auto) 0.2 (0-0.5) % Neut % (Auto) 50.3 (45.5-73.1) % Lymph % (Auto) 39.6 (18.3-44.2) % [place] % (Auto) 8.4 (2.6-8.5) % Eos % (Auto) 1.2 (0-4.4) % Baso % (Auto) 0.3 (0.2-1.2) % Lymph # (Auto) 2.32 (0.9-3.2) K/mm3 [place] # (Auto) 0.5 (0.1-0.6) K/mm3 Eos # (Auto) 0.1 (0-0.3) K/mm3 Baso # (Auto) 0.0 (0.0-0.1) K/mm3 Abs Immat Gran (auto) 0.01 (0.00-0.031) K/mm3 Absolute Neuts (auto) 3.0 (1.3-6.7) K/mm3 Absolute Nucleated RBC 0.000 (0.0-0.012) K/mm3 Nucleated RBC % 0.0 (0.0-0.2) % PT 13.6 (11.1-14.7) Seconds INR 1.0 APTT 29.8 (22.3-36.8) Seconds D-Dimer < 0.27 (<0.48) ug/mL Sodium 138 (137-145) mmol/L Potassium 3.5 (3.4-5.0) mmol/L Chloride 102 (98-107) mmol/L Carbon Dioxide 26 (22-30) mmol/L Anion Gap 10 (4-12) mmol/L BUN 12 (7-17) mg/dL Creatinine 0.80 (0.7-1.0) mg/dL Estim Creat Clear Calc 107 ml/min Estimated GFR > 60 (59 - ) Glucose 101 (65-110) mg/dL Calcium 9.2 (8.4-10.2) mg/dL Total Bilirubin 1.6 H (0.2-1.3) mg/dL AST 22 (14-36) U/L ALT 14 (6-35) U/L Alkaline Phosphatase 54 (38-126) U/L Troponin I < 0.012 < 0.012 (0.000-0.034) ng/mL Total Protein 8.4 H (6.3-8.2) g/dL Albumin 4.7 (3.5-5.1) g/dL Lipase 104 (23-300) U/L Critical Care Time Critical Care Time Critical Care Time: No Discharge Plan Discharge Clinical Impression: Chest pain Patient Disposition: Home Condition: Stable Instructions: Chest Pain (ED) Additional Instructions: Return to the Emergency Department if you experience fever, chest pain, shortness of breath, or any other symptoms that are concerning to you Take your home medications as prescribed. Follow up with your primary care doctor. Patient Language: Korean Prescriptions: No Action No Home Medications cyclobenzaprine 10 mg tablet 10 mg PO Q8H PRN (Reason: muscle spasm) Qty: 30 0RF Follow-up/Referrals: Negrito Nuñez MD [Physician, Interventional Cardiology] Naga Adkins MD [Primary Care Provider, Family Practice] Quality HEART score for chest pain patients History: slightly suspicious ECG: normal Age: < or = to 45 years Risk factors: no risk factors known Troponin: < or = to 1x normal limit Heart score: 0
[2025-06-18 16:37] LABS: Troponin I < 0.012 ng/mL (0.000-0.034)
== END 2025-06-18 16:57 | disposition home or self-care (01) ==
PROVIDERS: Emergency Medicine; PCP Family Medicine
DX: R07.9 Chest pain, unspecified (principal); R94.31 Abnormal electrocardiogram [ECG] [EKG]
CPT/HCPCS: 36415; 71046; 80053; 83690; 84484; 85025; 85380; 85610; 85730; 93005; 99284; A9270

== ENCOUNTER 2025-06-20 09:59 | Outpatient (CLI) | payer OTHER, SELFPAY ==
--- NOTE | ~2025-06-20 | US_ITS ---
Examination: US abdomen complete Clinical History: R17 - Unspecified jaundice . Comparison: None Technique: Complete abdominal sonography Findings: Liver: Normal size. Normal echotexture. No intrahepatic biliary ductal dilatation. Normal hepatopedal flow main portal vein. Common duct: Normal caliber, 3 mm. Gallbladder: No stones. No wall thickening. No pericholecystic fluid. Spleen: Unremarkable. Pancreas: Unremarkable. Kidneys: Unremarkable. Aorta: No aneurysmal dilatation. Retrohepatic IVC: Unremarkable. IMPRESSION: 1. No acute findings. Reviewed, dictated and finalized at location R. CORDING MIXER IMPRESSION: 1. No acute findings.
== END 2025-06-20 10:00 | disposition home or self-care (01) ==
LOC: MICIMG 10:00
PROVIDERS: PCP Family Medicine; Visit Provider Nurse Practitioner Family
DX: R17 Unspecified jaundice (principal); M54.50 Low back pain, unspecified
CPT/HCPCS: 76700

== ENCOUNTER 2025-07-09 10:37 | Outpatient (CLI) | payer OTHER, SELFPAY ==
--- OUTSIDE RECORDS SUMMARY | 2025-07-09 11:34 | XMS_ITS | Clinical Summary ---
Author Organization [address] Address [address] [place] [address] Care Team Providers Care Suture Polisher Name Role Phone Unknown, Notinfile Primary Care Provider Unavail able Allergies No known active allergies Medications multivitamin tablet,chewable Take by mouth Active 42-bkky-zsdnue 6-dha 30 mg iron-1mg -200 mg capsule [...] of labor 06/20/2024 07/27/2024 Overview (06/20/2024): Kofi Pabon is a 28 y.o. female at 39w3d [...] carried 28/02 in house: R1 (first call) [phone] R1 alt (second call) [phone] R4 (Chief) [phone] GBS (group B Streptococcus c arrier), +RV culture, currently 06/06/2024 07/27/2024 Elevated 1hr GTT, 3hr WNL 4/4 03/22/2024 07/27/2024 Overview (03/30/2024): Midtrimester Labs Lab Results Component Value Date [id number] 141 (H) 03/20/2024 3hr WNL 4/ Choroid plexus cyst on anatomy ultrasound 01/28/2024 07/27/2024 Overview (03/01/2024): NIPT low risk pt BSR 12/20/2023 07/27/2024 Overview (03/01/2024): IOB Labs: Lab Results Component Value Date ABORH A Positive 12/20/2023 IDCOOMB Negative 12/20/2023 [id number] Nonreactive 12/20/2023 LABRPR Nonreactive 12/20/2023 RUBELIGG Reactive 12/20/2023 HEPBSAG Nonreactive 12/20/2023 [id number] 107 04/28/2021 Optional: [] Aneuploidy screening: Low risk [] Carrier testinnd Tri Labs: [] Anatomy ultrasound: [] CBC/1hr gtt/HIV/RPR at 24-28wks: Lab Results Component Value Date [id number] 107 04/28/2021 [id number] Nonreactive 12/20/2023 LABRPR Nonreactive 12/20/2023 [] Flu [...] ABORH A Positive 01/28/2021 IDCOOMB Negative 01/28/2021 [id number] Nonreactive 04/28/2021 LABRPR Nonreactive 04/28/2021 RUBELIGG Reactive 01/28/2021 HEPBSAG Nonreactive 01/28/2021 [id number] 107 04/28/2021 Optional: [] Aneuploidy screening: [] Carrier testinnd Tri Labs: [x] Anatomy ultrasound: [x] CBC/1hr gtt/HIV/RPR at 24-28wks: Lab Results Component Value Date [id number] 107 04/28/2021 [id number] Nonreactive 04/28/2021 LABRPR Nonreactive 04/28/2021 [] Flu Shot (Apr-October) [] Tdap (27-36wks) 3rd Tri Labs: [] GBS No results found for: GBS Overview (03/25/2021): Cardiac acvity present. FHR 143 bpm. movements visualized. Presentaon Breech. Placenta anterior, Previa-no, no placental masses. Umbilical cord Cord vessels: 3 vessel cord. Cord inser on: placental inser on: normal. Amnioc fluid Amount of AF: normal amount EFW 85% Encounters Date Type Department Care Team Description 06/26/2025 5:50 PM SLAT TWISTER Lab [facility] ([facility]) [address] [place] [phone] from Last 3 Months Immunizations Immunization Administration Dates Next Due Influenza, [...] Tobacco: Never Tobacco Cessation:Counseling Given: Not Answered [facility] Utilities Answer Date Recorded In the past 12 months has [employer]OO[employer], gas, oil, or water [employer] threatened to shut off services in your [...] often do you attend chur ch or yazidism services? Never 06/21/2024 Do you belong to any clubs o r organizations such as alevism groups, unions, fraternal or athletic groups, or [...] things needed for daily living? No 06/21/2024 [place] Depression Scale Answer Date Recorded [place] Depression Scale Total 5 07/27/2024 The thought [...] any time in the past 12 m onths, were you homeless or living in a detention (including now)? No 06/21/2024 Personal Safety Answer Date Recorded Have you ever been in or are you currently in a harmful physical or emotional relationship or is someone making you feel afraid or unsafe? Denies 06/20/2024 Comments No Sex and Gender Information Value Date Recorded Sex Assigned at Not on file Legal Sex Female 9:58 PM SLAT TWISTER Gender Identity Female 03/24/2021 9:00 AM CDT [...] al N Livin g 6 7 KINDRA PABON, [place] et Pattie espinoza MD Complications:None Delivery Location:[facility] Main C ampus ([facility]LD) 2023 Term 39w 3d 12h 19m 12h 07m/0h 09m/0h 03m 4.04 kg (8 lb 14.5 oz) M Vagina l Epidur al N Livin g 8 9 Enmanuel Willi am Paco little Rashmimemo ayee, [place] et Pattie espinoza MD Complications:None Delivery Location:[facility] Main C ampus ([facility]) Comments 07/28 Michael Anders 07/01 Enmanuel Rodrigues Last Filed Vital Signs Vital Sign Reading Time Taken Comments Blood Pressure 120/80 08/30/2024 1:26 PM SLAT TWISTER Pulse 66 06/22/2024 12:25 AM SLAT TWISTER Temperature 36.5 C (97.7 F) 06/22/2024 12:25 AM SLAT TWISTER Respiratory Rate 16 06/22/2024 12:25 AM SLAT TWISTER Oxygen Saturation 99% 06/22/2024 12:25 AM SLAT TWISTER Inhaled Oxygen Concentration - - Weight 100.2 kg (221 lb) 08/30/2024 1:26 PM SLAT TWISTER Height 188 cm (6' 2) 08/30/2024 1:26 PM SLAT TWISTER Body Mass Index 28.37 08/30/2024 1:26 PM SLAT TWISTER Plan of Treatment Health Maintenance Due Date Last Done Comments HPV Vaccines (1 - 3-dose SCDM series) 2021 Cervical Cancer Screening 06/27/2024 06/27/2023, Regular Well Visit/Exam 18-64 06/27/2024 06/27/2023 Covid-19 Vaccine ( season) 2025 06/03/2022, 05/13/2022 Influenza Vaccine (#1) 2025 , 06/27/2023, 06/30/2022, Additional history exists Depression Screening 07/27/2025 07/27/2024 DTaP/Tdap/Td Vaccine (4 - Td or Tdap) 04/12/2034 04/12/2024, 05/26/2021, 06/26/2015, Additional history exists Hepatitis B Screening Completed 04/16/1996 , 1995, 1995 Varicella Vaccines Completed 06/26/2015, 04/16/1996 Hepatitis C Screening Completed 12/20/2023 Pneumococcal vaccine <65 Aged Out No longer eligible based on patient's age to complete this topic Procedures Procedure Name Priority Date/Time Associated Diagnosis Comments T4, FREE Routine 06/26/2025 5:18 PM SLAT TWISTER TSH Routine 06/26/2025 5:18 PM SLAT TWISTER MAGNESIUM Routine 06/26/2025 5:18 PM SLAT TWISTER THYROID PEROXIDASE ANTIBODY Routine 06/26/2025 5:18 PM SLAT TWISTER HEPATITIS C ANTIBODY Routine 12/20/2023 11:24 AM CDT care, antepartum PAP WITH REFLEX TO HIGH RISK HPV Routine 06/27/2023 11:51 AM SLAT TWISTER Well woman exam Cervical cancer screening from Last 3 Months or Most Recently Relevant to Health Maintenance Results * Thyroid peroxidase antibody (TPO) (06/26/2025 5:18 PM SLAT TWISTER) Anti Thyroid Peroxidase <30 <=34 IUnits/mL Comment: ATPO Interpretive Data Results may be up to 28% higher in patients receiving Itraconazole. Current interpretive data was last revised 2020. Blood 06/26/2025 5:18 PM SLAT TWISTER 06/26/2025 5:45 PM SLAT TWISTER Yoselin Saini NP LAB BLOOD ORDERABLES Fi nal Result Performing Organization Address [facility] Co de Phone Number [facility] [place] [place] [address] * TSH (06/26/2025 5:18 PM SLAT TWISTER) Thyroid Stimulating Hormone 1.03 0.30 - 4.20 mcIUnit/mL Blood 06/26/2025 5:18 PM SLAT TWISTER 06/26/2025 5:45 PM SLAT TWISTER Yoselin Saini NP LAB BLOOD ORDERABLES Fi nal Result Performing Organization Address [facility] Co de Phone Number [facility] [place] [place] [address] * T4, free (06/26/2025 5:18 PM SLAT TWISTER) Pathologist [facility] Free T4 1.18 0.90 - 1.70 ng/dL Blood 06/26/2025 5:18 PM SLAT TWISTER 06/26/2025 5:45 PM SLAT TWISTER Yoselin Saini NP LAB BLOOD ORDERABLES Fi nal Result Performing Organization Address [facility] Co de Phone Number [facility] [place] [address] * Magnesium (06/26/2025 5:18 PM SLAT TWISTER) [facility] Magnesium 2.2 1.4 - 2.5 mg/dL Blood 06/26/2025 5:18 PM SLAT TWISTER 06/26/2025 5:45 PM SLAT TWISTER Yoselin Saini NP LAB BLOOD ORDERABLES Fi nal Result Performing Organization Address [facility] de Phone Number [facility] [place] [place] [address] * Hepatitis C antibody Blood (12/20/2023 11:24 AM CDT) [facility] Hep C Ab Nonreactive Nonreactive Comment:Antibodies to HCV no t detected. Does NOT exclude the possibility of recent exposure to HCV. Current interpretive data was last revised on 22 Blood 12/20/2023 11:2 4 AM CDT 12/20/2023 4:27 PM CDT Meseret Fletcher MD LAB MICROBIOLOGY - GE NERAL ORDERABLES Final Result Performing Organization Address [facility] Co de Phone Number [facility] [place] [address] * Pap with reflex to High Risk HPV and Genotyping (Cytology Component) (06/27/2023 11:51 AM SLAT TWISTER) Thin prep (Pap test) 06/27/2023 11:51 AM SLAT TWISTER 06/27/2023 11:51 AM SLAT TWISTER Narrative PATHOLOGY CH - 06/29/2023 12:43 PM SLAT TWISTER [facility] Department of Pathology [address] [place], [place] [id number] Final Report Note to Patients: This report [...] and explain the details. Patient Name: KOFI PABON Address: [address] [place] [address] Gender: F : 1995 (Age: 27) Service: Location: [facility] : [id number] Hospital #: [id number] Patient Type: SPECIMEN Taken: 06/27/2023 Received: 06/27/2023 Accessioned:: 06/28/2023 Reported: 06/29/2023 Physician(s): LIZZETH Pacheco WHNP Diagnosis: SOURCE OF SPECIMEN Imaged Thinprep Pap Test w/ Reflex HPV - Oxygen Plant Operator Cytologic Material: STATEMENT OF ADEQUACY - Satisfactory for evaluation; endocervical/transformation zone component present GENERAL CATEGORIZATION: - Negative for intraepithelial lesion or malignancy CARLOS Jarvis(ASCP) Report Electronically Reviewed and Signed Out By CARLOS Jarvis(ASCP) 06/29/2023 12:43:10Specimen(s) Received: A: Imaged Thinprep Pap Test w/ Reflex HPV - Oxygen Plant Operator Cytologic Material Clinical History: Last Menstrual Period: [...] determined by the Surgical Pathology Department at [facility] as part of an ongoing it quality assurance analyst program and in compliance with federally mandated [...] characteristics determined by the Surgical Pathology Department [facility]. It has not been cleared or approved by the U. S. Food and Drug Administration. Danette Taylor NP LAB CYTOLOGY ORDERABLE S Final Result Performing Organization Address City/State/ZIP Co pr Phone Number [facility] [address] [place] [address] from Last 3 Months or Most Recently Relevant to Health Maintenance Insurance [facility] [employer] Advance Directives For more information, please contact: [phone] * Full Code (Latest Code Status on [...] 6:47 AM 08/06/2021 1:26 AM Full CPR in case of cardiopulmonary arrest Care Teams Suture Polisher Relationship Specialty Start Date End Date Unknown, Notinfile PCP - General 02/20/20
--- OUTSIDE RECORDS SUMMARY | 2025-07-09 11:34 | XMS_ITS | Clinical Summary ---
Author Organization [facility] Address [address] [place] [address] Phone Care Team Providers Care Overlock Operator Name Role Phone Naga Adkins MD Primary Care Provider [phone] Allergies No known active allergies Medications HYDROcodone-liza [...] on file Legal Sex Female 1:54 PM RELASTER Gender Identity Not on file Sexual Orientation Not on file Last Filed Vital Signs Vital Sign Reading Time Taken Comments Blood Pressure 109/64 10/03/2018 7:57 AM RELASTER Pulse 62 10/03/2018 7:57 AM RELASTER Temperature 37.4 C (99.3 F) 10/03/2018 7:57 AM RELASTER Respiratory Rate 20 10/03/2018 7:57 AM RELASTER Oxygen Saturation 100% 10/03/2018 7:57 AM RELASTER Inhaled Oxygen Concentration - - Weight 87.5 kg (193 lb) 10/02/2018 7:44 AM RELASTER Height 185.4 cm (6' 1) 10/02/2018 7:44 AM RELASTER Body Mass Index 25.46 10/02/2018 7:44 AM RELASTER Plan of Treatment Health Maintenance Due Date Last Done Comments DTAP/TDAP/TD VACCINES (1 - Tdap) 2013 HEPATITIS B VACCINES (1 of 3 - 19+ 3-dose series) 06/10 HPV/Cotest (21-29) 2015 HPV VACCINES (1 - 3-dose SCDM series) 2021 CERVICAL CANCER SCREENING 2024 HPV/Cotest (30-65) 2024 PAP SMEAR 2024 INFLUENZA VACCINE (#1) 2025 06/08/2018 Medical Devices Implanted Type Area Systems Integrator Device Identifier Shelf Expiration Date Model / Serial / Lot Sealant Duraseal 5ml - [id number] Implanted:Qty : 1 on 10/02/2018 by Arelis Silva MD at [facility] Biological Right: Spine Lumbar [employer] [id number] 12/06/2019 / / [id number] Hemostatic Surgiflo 8ml W/Thrombin 2994 - [id number] Implanted:Qty : 1 on 10/02/2018 by Arelis Silva MD at [facility] Hemostatic Right: Spine Lumbar [employer] 01/06/2020 [id number] / / [id number] Nushield 1.6cm Disc Implanted:Qty : 1 on 10/02/2018 by Arelis Silva MD at [facility] Tissue Right: Spine Lumbar 05/15/2023 [id number] / [id number] / Description:Donor # [id number] REQ# [id number] Nexplanan-(L) Upper Arm Insurance [facility] BLUE ACCESS/TRUE BLUE PPO Advance Directives For more information, please contact: [phone] * Full Code (Latest Code Status on File) Date Activated Date Inactivated Comments 10/02/2018 12:00 PM 10/03/2018 2:32 PM * Full Code Date Activated Date Inactivated Comments 10/02/2018 7:52 AM 10/02/2018 12:00 PM Care Teams Overlock Operator Relationship Specialty Start Date End Date Naga Adkins MD [address] [place] [address] PCP - General Family Practice 09/29/18
== END 2025-07-09 10:38 | disposition home or self-care (01) ==
LOC: ANHCARD 10:38
PROVIDERS: PCP Family Medicine; Visit Provider Nurse Practitioner Adult Health
DX: R00.0 Tachycardia, unspecified (principal); R00.2 Palpitations
CPT/HCPCS: 93242